=== PATIENT | female | born 1950 | race Caucasian/White ===

== ENCOUNTER → 2017-10-25 | Outpatient (CLI) | payer MEDICARE, OTHER ==
[~2017-10-25] MED LIST: CEP500 PO; IBU800 PO; IBUP600T22 PO; LOR5/325 PO; NO MEDS; PRAV40TA78 PO
[2017-10-25 12:53] LABS: PLATELET COUNT, AUTOMATED 245 K/uL (150-450)
--- NOTE | 2017-10-25 12:57 | EKG ---
[place] [facility] [place] NAME: EMILIO URBAN : [id number] MR: [id number] V: [id number] EXAM DATE: ORDERING PHYSICIAN: CHEKO SKINNER TECHNOLOGIST: JORGE Guidry Reason : PREOP-LUMBAR Blood Pressure : / mmHG Vent. Rate : 064 BPM Atrial Rate : 064 BPM P-R Int : 154 ms QRS Dur : 096 ms QT Int : 418 ms P-R-T Axes : 066 -21 024 degrees QTc Int : 431 ms Normal sinus rhythm Normal ECG No previous ECGs available Confirmed by DAVY SINGH ([id number]) on 10/26/2017 6:36:42 AM Referred By: Confirmed By:DAVY SINGH
[2017-10-25 13:30] LABS: INR 0.98
== END ==
LOC: LAB 12:23
PROVIDERS: ATTEND Orthopaedic Surgery
DX: Z01.818 Encounter for other preprocedural examination (principal)
CPT/HCPCS: 36415; 82040; 82247; 82310; 82374; 82435; 82565; 82947; 84075; 84132; 84155; 84295; 84450; 84460; 84520; 85025; 85610; 85730; 87071; 93005

== ENCOUNTER → 2019-01-23 | Outpatient (CLI) | payer MEDICARE, OTHER ==
--- NOTE | 2019-01-23 17:17 | RADIOLOGY IMAGING REPORT ---
FACILITY: [facility] PATIENT NAME: EMILIO URBAN : [id number] MR: [id number] V: [id number] EXAM DATE: [id number] ORDERING PHYSICIAN: LICHA SMITH TECHNOLOGIST: Antonieta Kulkarni PROCEDURE:BILATERAL DIGITAL SCREENING MAMMOGRAM WITH CAD ASSISTED INTERPRETATION & 3D TOMOSYNTHESIS COMPARISON:Prior mammograms 07/31/15, 06/21/13. INDICATIONS:screening FINDINGS: The breasts are extremely dense which can lower the sensivity of mammography. There is a potential area of architectural distortion in the lateral portion of the Right breast on the Right CC view at the junction middle and posterior 1/3 for which Spot compression view is recommended. This is best appreciated on Tomographic slice 15. DIAGNOSTIC CATEGORY 0--INCOMPLETE: NEED ADDITIONAL IMAGING EVALUATION. RECOMMENDATIONS: ADDITIONAL MAMMOGRAPHIC VIEWS REQUIRED: RIGHT BREAST. IMPRESSION: BIRADS 0: Incomplete. Additional views of the Right breast recommended as described above. Dictated by: Ara Houston M.D. on 01/23/2019 at 14:32 Transcribed by: MURRAY on 01/23/2019 at 14:55 Approved by: Ara Houston M.D. on 01/23/2019 at 17:16 [facility]
== END ==
LOC: MAMO 00:49
PROVIDERS: ATTEND Nurse Practitioner Family
DX: R92.2 Inconclusive mammogram (principal)
CPT/HCPCS: 77063; 77067

== ENCOUNTER → 2019-02-02 | Outpatient (CLI) | payer MEDICARE, OTHER ==
--- NOTE | 2019-02-15 15:03 | RADIOLOGY IMAGING REPORT ---
FACILITY: [facility] PATIENT NAME: EMILIO URBAN : [id number] MR: [id number] V: [id number] EXAM DATE: ORDERING PHYSICIAN: LICHA SMITH TECHNOLOGIST: Antonieta Kulkarni PROCEDURE:UNILATERAL RIGHT DIGITAL MAMMOGRAM DIAGNOSTIC WITH CAD ASSISTED INTERPRETATION & 3D TOMOSYNTHESIS REASON FOR STUDY: Further evaluation. FAMILY HISTORY OF BREAST CANCER: None. BREAST PROCEDURES/TREATMENTS: None. COMPARISON STUDIES: Prior mammograms 01/23/19, 07/31/15, 06/21/13. MAMMOGRAM VIEWS OBTAINED: 2D & 3D Spot compression view in the Right CC projection. BREAST DENSITY: MAMMOGRAM IMPRESSION: The focal asymmetry and potential area of architectural distortion in the lateral portion of the Right breast on the recent Right CC view was compressible and apparently represented a summation shadow. ULTRASOUND AREA SCANNED: ULTRASOUND IMPRESSION: FINDINGS: DIAGNOSTIC CATEGORY 2--BENIGN FINDING. RECOMMENDATIONS: ROUTINE MAMMOGRAM AND CLINICAL EVALUATION. IMPRESSION: BIRADS 2: Benign finding. Dictated by: Ara Houston M.D. on 02/15/2019 at 11:51 Transcribed by: MURRAY on 02/15/2019 at 13:42 Approved by: Ara Houston M.D. on 02/15/2019 at 15:02 [facility]
== END ==
LOC: MAMO 01:38
PROVIDERS: ATTEND Nurse Practitioner Family
DX: R92.8 Other abnormal and inconclusive findings on diagnostic imaging of breast (principal)
CPT/HCPCS: 77061; 77065